=== PATIENT | male | born 2000 | race Hispanic/Latino ===

== ENCOUNTER 2018-04-12 18:14 | Emergency (ER) | payer MEDICAID, OTHER ==
[2018-04-12 19:07] LABS: APPEARANCE,URINE Clear (CLEAR); BILIRUBIN,URINE Negative (NEGATIVE); COLOR,URINE Yellow (YELLOW); GLUCOSE, URINE (UA) Negative (NEGATIVE); KETONES,URINE Negative (NEGATIVE); LEUKOCYTE ESTERASE ,URINE Negative (NEGATIVE); NITRATE,URINE Negative (NEGATIVE); OCCULT BLOOD,URINE Negative (NEGATIVE); PROTEIN,URINE Negative (NEGATIVE); UROBILINOGEN,URINE 0.2 mg/dL (0.2-1.0)
[2018-04-12] MEDS ORDERED: ONDANSETRON HCL 4 MG/2 ML VIAL ONE (19:13)
[2018-04-12 19:15] LABS: BASOPHILS % (AUTO) 0.3 % (0.0-5.0); EOSINOPHILS % (AUTO) 0.9 % (0.0-8.0); LYMPHOCYTES % (AUTO) 36.4 % (21.0-51.0); MEAN CORPUSCULAR HEMOGLOBIN 30.9 pg (27.0-33.0); MEAN CORPUSCULAR HGB CONC 35.1 g/dL (32.0-36.0); MEAN CORPUSCULAR VOLUME 88.1 fL (80-100); MONOCYTES % (AUTO) 8.7 % (3.0-13.0); NEUTROPHILS % (AUTO) 53.7 % (40.0-77.0); NUCLEATED RED BLOOD CELLS 0.1 % (0.0-0.19); PLATELET COUNT (AUTO) 261 K/uL (130-400); RED BLOOD CELL COUNT(AUTO) 5.22 MIL/uL (4.50-6.20)
[2018-04-12 19:31] LABS: POTASSIUM 4.5 mmol/L (3.5-5.1)
[2018-04-12 19:32] LABS: ALBUMIN 4.9 g/dL (3.5-5.0); BILIRUBIN,TOTAL 0.3 mg/dL (0.2-1.0); CREATININE 0.9 mg/dL (0.5-1.5); TOTAL PROTEIN, SERUM 8.8 g/dL (6.0-8.3)
[2018-04-12] MEDS ORDERED: MAG HYDROX/AL HYDROX/SIMETH ES 30 ML SUSP UDCUP ONE (19:42)
[2018-04-12] MEDS ORDERED: LIDOCAINE HCL 2% VISCOUS 15 ML UDCUP ONE (19:42)
== END 2018-04-12 20:42 | disposition home or self-care (01) ==
LOC: EDH 18:14
DX: R10.13 Epigastric pain (principal); R11.0 Nausea; Z98.890 Other specified postprocedural states; Z72.0 Tobacco use
CPT/HCPCS: 36415; 80053; 81003; 83690; 85025; 87804 ×2; 96374; 99283; J2405

== ENCOUNTER 2018-09-16 00:03 | Inpatient (IN) | payer SELFPAY ==
[~2018-09-16] VITALS: Ht 175.3 cm; Wt 70.9 kg
[2018-09-16] MEDS ORDERED: THIAMINE HCL 100 MG/ML 2ML VIAL ONE (00:23)
[2018-09-16] MEDS ORDERED: SODIUM CHLORIDE 0.9% 1000ML 1,000 ML IV ONE ×2 (00:23→02:23)
[2018-09-16] MEDS ORDERED: ONDANSETRON HCL 4 MG/2 ML VIAL ONE (00:23)
[2018-09-16 00:39] LABS: EOSINOPHILS % (AUTO) 0.6 % (0.0-8.0); HEMATOCRIT 41.7 % (42-54); LYMPHOCYTES % (AUTO) 43.3 % (21.0-51.0); MEAN CORPUSCULAR HEMOGLOBIN 30.3 pg (27.0-33.0); MEAN CORPUSCULAR HGB CONC 33.8 g/dL (32.0-36.0); MEAN CORPUSCULAR VOLUME 89.7 fL (80-100); MONOCYTES % (AUTO) 8.2 % (3.0-13.0); NEUTROPHILS % (AUTO) 46.9 % (40.0-77.0); PLATELET COUNT (AUTO) 261 K/uL (130-400); RED BLOOD CELL COUNT(AUTO) 4.65 MIL/uL (4.50-6.20); RED CELL DISTRIBUTION WIDTH 13.4 % (11.0-15.5); WHITE BLOOD COUNT (AUTO) 6.3 K/uL (4.8-10.8)
[2018-09-16 00:57] LABS: CARBON DIOXIDE 29 mmol/L (21-32); CHLORIDE 106 mmol/L (101-111); GLOMERULAR FILTR. RATE CALC 101 mL/min (>60); GLUCOSE,RANDOM 104 mg/dL (70-105); POTASSIUM 3.9 mmol/L (3.5-5.1); SODIUM SERUM 147 mmol/L (136-145); UREA NITROGEN, BLOOD 8 mg/dL (7-18)
[2018-09-16 00:59] LABS: AMPHET/METH SCREEN,URINE NEGATIVE (NEGATIVE); BARBITURATE SCREEN, URINE NEGATIVE (NEGATIVE); BENZODIAZEPINES SCREEN,URINE POSITIVE (NEGATIVE); CANNABINOID SCREEN,URINE NEGATIVE (NEGATIVE); COCAINE SCREEN,URINE POSITIVE (NEGATIVE); OPIATE SCREEN,URINE NEGATIVE (NEGATIVE); PHENCYCLIDINE SCREEN,URINE NEGATIVE (NEGATIVE)
[2018-09-16 01:01] LABS: ALANINE AMINOTRANSFERASE 43 U/L (12-78); ALBUMIN 4.2 g/dL (3.5-5.0); ALCOHOL, BLOOD 110 mg/dL (0-10); ASPARTATE AMINOTRANSFERASE 31 U/L (10-37); BILIRUBIN,TOTAL 0.6 mg/dL (0.2-1.0); TOTAL PROTEIN, SERUM 7.2 g/dL (6.0-8.3)
[2018-09-16 01:04] LABS: ACETAMINOPHEN < 1 mcg/mL (10-29); SALICYLATE < 2.8 mg/dL (2.8-20.0)
[2018-09-16] MEDS ORDERED: NALOXONE HCL 0.4 MG/1 ML ML ONE (01:06)
[2018-09-16] MEDS ORDERED: LORAZEPAM 2 MG/ML 1 ML VIAL IVP PRN (02:00)
[2018-09-16] MEDS ORDERED: ONDANSETRON HCL 4 MG/2 ML VIAL IV PRN (02:00)
[2018-09-16] MEDS ORDERED: ACETAMINOPHEN 325 MG TAB PO PRN ×2 (02:00)
[2018-09-16] MEDS ORDERED: LORAZEPAM 2 MG/ML 1 ML VIAL ONE (02:23)
--- NOTE | 2018-09-16 08:08 | NUR ---
ER ADMIT PATIENT RECEIVED FROM ER VIA WHEELCHAIR ACCOMPANIED BY MOTHER. NO SIGNS OF OBVIOUS DISTRESS NOTED. HE IS SLEEPY AND HAS ASKED MOTHER TO PROVIDE ANY INFORMATION NEEDED. BOTH HAVE BEEN ORIENTED TO ROOM AND USE OF CALL LIGHT. BED IS IN LOWEST POSITION AND LOCKED. WILL CONTINUE TO MONITOR.
[2018-09-16 08:10] VITALS: BP 118/53
[2018-09-16] MEDS: SODIUM CHLORIDE 0.9% 1000ML 1,000 ML IV SCH ×2 (08:40→21:48)
[2018-09-16] MEDS: FAMOTIDINE/PF 20 MG/2 ML VIAL IV SCH ×2 (08:41→21:53)
[2018-09-16 11:00] VITALS: BP 89/52
[2018-09-16 16:00] VITALS: BP 105/56
[2018-09-16] MEDS ORDERED: LORAZEPAM 0.5 MG TABLET PO PRN (17:00)
--- NOTE | 2018-09-16 18:45 | NUR ---
cm note met with patient and states resides at home with mother, pt independent with adls and self care. does not see a pcp. provided pt and mother information on low income clinics in the area. mother also working with [employer] [facility] for possible medicaid assistance. referral to social sciences research scientist for followup. dx alcohol abuse, and xanax. Addendum: 09/16/18 at 1848 by ASHLEY ARANGO CM Amended: Links added.
[2018-09-16 19:21] VITALS: BP 117/72
[2018-09-16] MEDS: M.V.I. IV [ADULT] 10 ML, FOLIC ACID 1 MG, THIAMINE HCL 100 MG in SODIUM CHLORIDE 0.9% 1... IV SCH (21:53)
[2018-09-16 23:24] VITALS: BP 123/81
[2018-09-17 03:36] VITALS: BP 124/77
[2018-09-17] MEDS: SODIUM CHLORIDE 0.9% 1000ML 1,000 ML IV SCH ×2 (04:38→19:30)
[2018-09-17 05:24] LABS: MEAN CORPUSCULAR HEMOGLOBIN 30.8 pg (27.0-33.0); MEAN CORPUSCULAR HGB CONC 34.1 g/dL (32.0-36.0); MEAN CORPUSCULAR VOLUME 90.3 fL (80-100); PLATELET COUNT (AUTO) 212 K/uL (130-400); RED BLOOD CELL COUNT(AUTO) 4.21 MIL/uL (4.50-6.20); RED CELL DISTRIBUTION WIDTH 13.4 % (11.0-15.5)
[2018-09-17 05:36] LABS: POTASSIUM 3.8 mmol/L (3.5-5.1)
[2018-09-17 07:44] VITALS: BP 94/45
[2018-09-17] MEDS: M.V.I. IV [ADULT] 10 ML, FOLIC ACID 1 MG, THIAMINE HCL 100 MG in SODIUM CHLORIDE 0.9% 1... IV SCH (09:00)
[2018-09-17 11:38] VITALS: BP 129/78
--- NOTE | 2018-09-17 15:31 | NUR ---
ETOH and XANAX ABUSE Sw met with pt, mother and grandmother. Mother states that pt was brought in Sat night when he was threatening to jump in front of a car because she would let him go to store to get alcohol. Mom reports she tried to stop him and someone called police to come help her with pt. Mother states pt pt has been drinking any kind of alcohol he can get his hands on since age 13-14. Pt will buy alcohol is he has money or if friends offer. Pt states he uses cocaine only when he is drug and friends offer. Last time he used was night. As for Xanax, pt states "I'd used everyday if I could". Mother reports if he has money, he will buy Xanax and he will do as much as 8 bars a day. Mother reports pt is very verbally nd physically abusive when he is under the influence. Mother states he sees people, and says they tell him to do things. Grandmother states pt reports not being able to sleep because "the demons won't let him". Pt has been in rehab last year for 6months and was sober for 6months after. Pt wanting to go intothe but needs GED first. Pt enrolled in school and could complete by Feb 2019, if he applies himself. Family states pt is a wonderful kid when sober, but under the influence, he is horrible. Mother told pt that she is fed up with his behaviors and wants him to get his act together. Dr Johnson lakhani pending and recommendations for va. Discussed [facility] and family voiced willingness to take pt for services, but pt never agreed.
[2018-09-17 16:20] VITALS: BP 123/77
[2018-09-17 20:00] VITALS: BP 125/70
[2018-09-17] MEDS ORDERED: TRAZODONE HCL 50 MG TAB PO PRN (20:00)
[2018-09-17] MEDS: FAMOTIDINE/PF 20 MG/2 ML VIAL IV SCH (20:22)
[2018-09-17 23:38] VITALS: BP 118/68
[2018-09-18 04:00] VITALS: BP 105/49
[2018-09-18 04:54] LABS: HEMATOCRIT 38.1 % (42-54); MEAN CORPUSCULAR HEMOGLOBIN 31.7 pg (27.0-33.0); MEAN CORPUSCULAR HGB CONC 35.2 g/dL (32.0-36.0); MEAN CORPUSCULAR VOLUME 90.1 fL (80-100); NUCLEATED RED BLOOD CELLS 0.2 % (0.0-0.19); PLATELET COUNT (AUTO) 218 K/uL (130-400); RED BLOOD CELL COUNT(AUTO) 4.23 MIL/uL (4.50-6.20); WHITE BLOOD COUNT (AUTO) 7.5 K/uL (4.8-10.8)
[2018-09-18 04:57] LABS: POTASSIUM 3.4 mmol/L (3.5-5.1)
[2018-09-18 07:30] VITALS: BP 102/58
[2018-09-18] MEDS: M.V.I. IV [ADULT] 10 ML, FOLIC ACID 1 MG, THIAMINE HCL 100 MG in SODIUM CHLORIDE 0.9% 1... IV SCH (09:00)
[2018-09-18] MEDS: FAMOTIDINE/PF 20 MG/2 ML VIAL IV SCH (09:00)
--- NOTE | 2018-09-18 10:27 | NUR ---
PLACED CALL TO [facility] FOR OUTPT APPOINTMENT FOR ETOH AND DRUG REHAB, NO ANSWER, UNABLE TO LEAVE MESSAGE, WILL ATTEMPT AGAIN
[2018-09-18] MEDS: SODIUM CHLORIDE 0.9% 1000ML 1,000 ML IV SCH (12:02)
[2018-09-18] MEDS ORDERED: THIA100T91 PO (13:24)
[2018-09-18] MEDS ORDERED: FOLI1TAB15 PO (13:24)
[2018-09-18] MEDS ORDERED: TRAZ-253 PO (13:24)
[2018-09-18] MEDS ORDERED: POTASSIUM CHLORIDE 10 MEQ/TAB.SA PO SCH (13:30)
[2018-09-18] MEDS ORDERED: TRAZODONE HCL 50 MG TAB PO SCH (21:00)
== END 2018-09-18 14:00 | disposition home or self-care (01) | DRG 917 ==
LOC: EDH 00:03 → EDHIP 01:25 → 4BH 06:14
PROVIDERS: ADMIT Hospitalist; ATTEND Hospitalist
DX: T42.4X1A Poisoning by benzodiazepines, accidental (unintentional), initial encounter (principal); G92 Toxic encephalopathy; F10.239 Alcohol dependence with withdrawal, unspecified; T51.0X1A Toxic effect of ethanol, accidental (unintentional), initial encounter; F10.229 Alcohol dependence with intoxication, unspecified; F13.10 Sedative, hypnotic or anxiolytic abuse, uncomplicated; F17.200 Nicotine dependence, unspecified, uncomplicated; F39 Unspecified mood [affective] disorder; F41.9 Anxiety disorder, unspecified; G31.2 Degeneration of nervous system due to alcohol; Y90.5 Blood alcohol level of 100-119 mg/100 ml; T40.5X1A Poisoning by cocaine, accidental (unintentional), initial encounter; Y92.89 Other specified places as the place of occurrence of the external cause
CPT/HCPCS: 36415; 80048; 80053; 80305; 84484; 85025; 85027; 93005; G0378; G0480; G0481; J2060; J2310; J2405; J3411; J3490; J7030